=== PATIENT | male | born 1965 | race Caucasian/White ===

== ENCOUNTER 2019-01-03 18:55 | Inpatient (IN) | payer BC ==
[2019-01-03] MEDS ORDERED: SODIUM CHLORIDE 0.9% 1,000 ML IV STA (19:05)
[2019-01-03] MEDS: METOPROLOL TARTRATE 5 MG/5 ML VIAL IVP STA ×2 (19:15→19:25)
[2019-01-03 19:31] LABS: Basophils # (A) 0.1 k/uL (0-0.2); Basophils % (A) 1 %; Eosinophils # (A) 0.3 k/uL (0-0.7); Eosinophils % (A) 3 %; HCT 44.8 % (39.0-53.0); HGB 14.9 gm/dL (13.0-17.5); Lymphocytes # (A) 1.8 k/uL (1.0-4.8); Lymphocytes % (A) 19 %; MCH 29.5 pg (25.0-35.0); MCHC 33.2 g/dL (31.0-37.0); MCV 88.8 fL (80.0-100.0); Mean Platelet Volume 8.6; Monocytes # (A) 0.6 k/uL (0-1.0); Monocytes % (A) 7 %; Neutrophils # (A) 6.9 k/uL (1.3-7.7); Neutrophils % (A) 70 %; Platelet Count 222 k/uL (150-450); RBC 5.05 m/uL (4.30-5.90); WBC 9.8 k/uL (3.8-10.6)
[2019-01-03 19:39] LABS: ALT 51 U/L (21-72); AST 34 U/L (17-59); African American GFR (CKD) >90 (>60 ml/min/1.73 sqM); Albumin 4.1 g/dL (3.5-5.0); Alkaline Phosphatase 75 U/L (38-126); Anion Gap 8 mmol/L; Blood Urea Nitrogen 25 mg/dL (9-20); Calcium 8.9 mg/dL (8.4-10.2); Carbon Dioxide 23 mmol/L (22-30); Chloride 110 mmol/L (98-107); Creatine Kinase 381 U/L (55-170); Glucose 125 mg/dL (74-99); Non-African American GFR(CKD) >90 (>60 ml/min/1.73 sqM); Potassium 3.5 mmol/L (3.5-5.1); Sodium 141 mmol/L (137-145); Total Bilirubin 0.7 mg/dL (0.2-1.3); Total Protein 6.8 g/dL (6.3-8.2)
[2019-01-03 19:45] LABS: D-Dimer <0.17 mg/L FEU (<0.60); INR 0.9 (<1.2); Partial Thromboplastin Time 24.3 sec (22.0-30.0); Prothrombin Time 9.9 sec (9.0-12.0)
--- NOTE | 2019-01-03 19:49 | ED ---
Arrhythmia/Palpitations HPI - General Chief Complaint: Arrhythmia/Palpitations Stated Complaint: SVT Time Seen by Provider: 01/03/19 19:00 Source: patient, EMS, RN notes reviewed, old records reviewed Mode of arrival: EMS Limitations: no limitations - History of Present Illness Initial Comments: This is a 53-year-old male the ER for evaluation. Patient has a for evaluation of significant elevated heart rate cellulitis dizziness and some chest pain. Chest pain is now resolved. Patient has history of SVT otherwise takes no medications has no medical ALLERGIES no medical conditions no drugs or alcohol abuse. Patient symptoms began after work he has not increased stress today denies recent drug or alcohol abuse again. Patient currently is asymptomatic. Per EMS patient was in SVT MD Complaint: palpitations, irregular heart beat -: hour(s) Arrhythmia History: SVT Associated Symptoms: chest pain, shortness of breath, anxiety - Related Data Home Medications Medication Instructions Recorded Confirmed Ibuprofen [Motrin Ib] 800 mg PO DAILY 01/03/19 01/03/19 Allergies Allergy/AdvReac Type Severity Reaction Status Date / Time No Known Allergies Allergy Verified 01/03/19 19:08 Review of Systems ROS Statement: Those systems with pertinent positive or pertinent negative responses have been documented in the HPI. ROS Other: All systems not noted in ROS Statement are negative. Past Medical History Past Medical History: Supraventricular Tachycardia (SVT) History of Any Multi-Drug Resistant Organisms: None Reported Past Surgical History: Appendectomy, Cholecystectomy Past Psychological History: No Psychological Hx Reported Smoking Status: Current every day smoker Past Alcohol Use History: Occasional Past Drug Use History: None Reported General Exam Limitations: no limitations General appearance: alert, in no apparent distress Head exam: Present: atraumatic, normocephalic, normal inspection Eye exam: Present: normal appearance, PERRL, EOMI. Absent: scleral icterus, conjunctival injection, periorbital swelling ENT exam: Present: normal exam, mucous membranes moist Neck exam: Present: normal inspection. Absent: tenderness, meningismus, lymphadenopathy Respiratory exam: Present: normal lung sounds bilaterally. Absent: respiratory distress, wheezes, rales, rhonchi, stridor Cardiovascular Exam: Present: tachycardia, irregular rhythm, normal heart sounds. Absent: systolic murmur, diastolic murmur, rubs, gallop, clicks GI/Abdominal exam: Present: soft, normal bowel sounds. Absent: distended, tenderness, guarding, rebound, rigid Extremities exam: Present: normal inspection, full ROM, normal capillary refill. Absent: tenderness, pedal edema, joint swelling, calf tenderness Back exam: Present: normal inspection Neurological exam: Present: alert, oriented X3, CN II-XII intact Psychiatric exam: Present: normal affect, normal mood Skin exam: Present: warm, dry, intact, normal color. Absent: rash Course Vital Signs 01/03/19 18:58 Temperature 98.2 F Pulse Rate 83 Respiratory 18 Rate Blood Pressure 106/81 - Reevaluation(s) Reevaluation #1: 01/03/19 19:48 Clinical record is reviewed Patient heart rate is reviewed per EMS showing SVT now converted to regular rhythm Reevaluation #2: 01/03/19 19:48 Patient remains without complaint EKG Findings - EKG Comments: EKG Findings:: EKG shows normal sinus rhythm rate of 74, OR 160, QRS 102, QTc 479 Medical Decision Making - Medical Decision Making 83 male presenting for evaluation of SVT. Patient also has elevated troponin, will admit on low-dose beta jesus, patient will admitted for cardiology evaluation - Lab Data Result diagrams: 01/03/19 19:11 01/03/19 19:11 Lab Results 01/03/19 01/03/19 01/03/19 Range/Units 17:20 19:11 19:11 WBC 9.8 (3.8-10.6) k/uL RBC 5.05 (4.30-5.90) m/uL Hgb 14.9 (13.0-17.5) gm/dL Hct 44.8 (39.0-53.0) % MCV 88.8 (80.0-100.0) fL MCH 29.5 (25.0-35.0) pg MCHC 33.2 (31.0-37.0) g/dL RDW 13.0 (11.5-15.5) % Plt Count 222 (150-450) k/uL Neutrophils % 70 % Lymphocytes % 19 % Monocytes % 7 % Eosinophils % 3 % Basophils % 1 % Neutrophils # 6.9 (1.3-7.7) k/uL Lymphocytes # 1.8 (1.0-4.8) k/uL Monocytes # 0.6 (0-1.0) k/uL Eosinophils # 0.3 (0-0.7) k/uL Basophils # 0.1 (0-0.2) k/uL PT (9.0-12.0) sec INR (<1.2) APTT (22.0-30.0) sec D-Dimer (<0.60) mg/L FEU Sodium 141 (137-145) mmol/L Potassium 3.5 (3.5-5.1) mmol/L Chloride 110 H (98-107) mmol/L Carbon Dioxide 23 (22-30) mmol/L Anion Gap 8 mmol/L BUN 25 H (9-20) mg/dL Creatinine 0.74 (0.66-1.25) mg/dL Est GFR (CKD-EPI)AfAm >90 (>60 ml/min/1.73 sqM) Est GFR (CKD-EPI)NonAf >90 (>60 ml/min/1.73 sqM) Glucose 125 H (74-99) mg/dL Calcium 8.9 (8.4-10.2) mg/dL Magnesium 2.0 (1.6-2.3) mg/dL Total Bilirubin 0.7 (0.2-1.3) mg/dL AST 34 (17-59) U/L ALT 51 (21-72) U/L Alkaline Phosphatase 75 (38-126) U/L Creatine Kinase 381 H (55-170) U/L Troponin I (0.000-0.034) ng/mL Total Protein 6.8 (6.3-8.2) g/dL Albumin 4.1 (3.5-5.0) g/dL Urine Color Yellow Urine Appearance Cloudy (Clear) Urine pH 7.0 (5.0-8.0) Ur Specific [place] 1.024 (1.001-1.035) Urine Protein 2+ H (Negative) Urine Glucose (UA) Negative (Negative) Urine Ketones 1+ H (Negative) Urine Blood Negative (Negative) Urine Nitrite Negative (Negative) Urine Bilirubin Negative (Negative) Urine Urobilinogen 2.0 (<2.0) mg/dL Ur Leukocyte Esterase Negative (Negative) Urine RBC 5 (0-5) /hpf Urine WBC 7 H (0-5) /hpf Amorphous Sediment Rare H (None) /hpf Urine Bacteria Occasional H (None) /hpf Hyaline Casts 49 H (0-2) /lpf Granular Casts 12 (0) /lpf Urine Mucus Many H (None) /hpf 01/03/19 01/03/19 Range/Units 19:11 19:11 WBC (3.8-10.6) k/uL RBC (4.30-5.90) m/uL Hgb (13.0-17.5) gm/dL Hct (39.0-53.0) % MCV (80.0-100.0) fL MCH (25.0-35.0) pg MCHC (31.0-37.0) g/dL RDW (11.5-15.5) % Plt Count (150-450) k/uL Neutrophils % % Lymphocytes % % Monocytes % % Eosinophils % % Basophils % % Neutrophils # (1.3-7.7) k/uL Lymphocytes # (1.0-4.8) k/uL Monocytes # (0-1.0) k/uL Eosinophils # (0-0.7) k/uL Basophils # (0-0.2) k/uL PT 9.9 (9.0-12.0) sec INR 0.9 (<1.2) APTT 24.3 (22.0-30.0) sec D-Dimer <0.17 (<0.60) mg/L FEU Sodium (137-145) mmol/L Potassium (3.5-5.1) mmol/L Chloride (98-107) mmol/L Carbon Dioxide (22-30) mmol/L Anion Gap mmol/L BUN (9-20) mg/dL Creatinine (0.66-1.25) mg/dL Est GFR (CKD-EPI)AfAm (>60 ml/min/1.73 sqM) Est GFR (CKD-EPI)NonAf (>60 ml/min/1.73 sqM) Glucose (74-99) mg/dL Calcium (8.4-10.2) mg/dL Magnesium (1.6-2.3) mg/dL Total Bilirubin (0.2-1.3) mg/dL AST (17-59) U/L ALT (21-72) U/L Alkaline Phosphatase (38-126) U/L Creatine Kinase (55-170) U/L Troponin I 0.111 H* (0.000-0.034) ng/mL Total Protein (6.3-8.2) g/dL Albumin (3.5-5.0) g/dL Urine Color Urine Appearance (Clear) Urine pH (5.0-8.0) Ur Specific [place] (1.001-1.035) Urine Protein (Negative) Urine Glucose (UA) (Negative) Urine Ketones (Negative) Urine Blood (Negative) Urine Nitrite (Negative) Urine Bilirubin (Negative) Urine Urobilinogen (<2.0) mg/dL Ur Leukocyte Esterase (Negative) Urine RBC (0-5) /hpf Urine WBC (0-5) /hpf Amorphous Sediment (None) /hpf Urine Bacteria (None) /hpf Hyaline Casts (0-2) /lpf Granular Casts (0) /lpf Urine Mucus (None) /hpf Disposition Clinical Impression: SVT (supraventricular tachycardia), Elevated troponin Disposition: ADMITTED IP TO THIS [facility] Condition: Good Is patient prescribed a controlled substance at d/c from ED?: No Referrals: Melvin Underwood MD [Primary Care Provider] - 1-2 days
[2019-01-03 19:58] LABS: Amorphous Sediment,Urine Rare /hpf; Appearance,Urine Cloudy (Clear); Bacteria,Urine Occasional /hpf; Bilirubin,Urine Negative (Negative); Blood,Urine Negative (Negative); Color,Urine Yellow; Glucose,Urine (UA) Negative (Negative); Granular Casts,Urine 12 /lpf (0); Hyaline Casts,Urine 49 /lpf (0-2); Ketones,Urine 1+ (Negative); Leukocyte Esterase,Urine Negative (Negative); Mucus,Urine Many /hpf; Nitrite,Urine Negative (Negative); Protein,Urine 2+ (Negative); RBC,Urine 5 /hpf (0-5); Specific Gravity,Urine 1.024 (1.001-1.035); WBC,Urine 7 /hpf (0-5)
[2019-01-03] MEDS ORDERED: ASPIRIN 81 MG PO STA (20:01)
[2019-01-03] MEDS ORDERED: NITROGLYCERIN SL TABS 0.4 MG TAB SUBLINGUAL PRN (20:01)
[2019-01-03 20:08] LABS: Amphetamine Screen,Urine Not Detected (NotDetected); Barbiturate Screen,Urine Not Detected (NotDetected); Benzodiazepines Screen,Urine Not Detected (NotDetected); Cocaine Screen,Urine Not Detected (NotDetected); Methadone Screen, Urine Not Detected (NotDetected); Opiate Screen,Urine Not Detected (NotDetected); Oxycodone Screen, Urine Not Detected (NotDetected); Phencyclidine Screen,Urine Not Detected (NotDetected); Tricyclic Antidepressant,Urine Not Detected (NotDetected); Urn Cannabinoid Scrn Not Detected (NotDetected)
[2019-01-03 21:38] VITALS: BMI 33.7
[2019-01-03] MEDS: METOPROLOL TARTRATE 25 MG TAB PO SCH (22:08)
[2019-01-03] MEDS: SODIUM CHLORIDE 0.9% 1,000 ML IV SCH (22:08)
--- NOTE | 2019-01-04 00:12 | P.HPIM ---
History of Present Illness H&P Date: 01/04/19 Patient is a 53-year-old male with no known PMH, current every day smoker who presented to the ED for palpitations, and chest discomfort. Patient states that he was in his usual state of health until about 5 PM earlier today when he suddenly developed epigastric discomfort, with radiation to the left arm, with associated nausea and palpitations. The patient saw his PMD, where he was given chewable aspirins and was sent to the ED. The patient was noted to be in SVT by EMS, and the patient spontaneously converted to sinus prior to arrival at the ED. the patient notes that he currently feels somewhat tired but noted that his symptoms had resolved entirely prior to arrival at the ED. The patient states that 3-4 years ago, he had an episode of SVT, when he was taking several [id number] supplements. The episode had resolved spontaneously however and he attributed it to his supplements. He had no additional episodes until earlier today. He denied chest pain, shortness of breath, nausea, vomiting, palpitations, dizziness. He also denied fever, chills, cough, recent travel, or lower extremity pain. He endorsed having more stress than usual at his job though denied any substance abuse. He underwent an extensive evaluation in the emergency room with an EKG showing normal sinus rhythm at 74 bpm, troponin elevated at 0.111, CK 381, WBC 9.8, hemoglobin 14.9, platelets 222, sodium 141, potassium 3.5, BUN 25, creatinine 0.74. Patient is being admitted to the medicine service for cardiology evaluation for SVT and troponin elevation. Review of Systems Pertinent positives and negatives as discussed in HPI, a complete review of systems was performed and all other systems are negative. Past Medical History Past Medical History: Supraventricular Tachycardia (SVT) Additional Past Medical History / Comment(s): HTN r/t testosterone replacement - stopped medications for testosterone and BP normalized. History of Any Multi-Drug Resistant Organisms: None Reported Past Surgical History: Appendectomy, Cholecystectomy Past Anesthesia/Blood Transfusion Reactions: No Reported Reaction Past Psychological History: No Psychological Hx Reported Smoking Status: Current every day smoker Past Alcohol Use History: Occasional Additional Past Alcohol Use History / Comment(s): patient smokes approx 10 cigarettes a day Past Drug Use History: None Reported Medications and Allergies Home Medications Medication Instructions Recorded Confirmed Type Ibuprofen [Motrin Ib] 800 mg PO DAILY 01/03/19 01/03/19 History Allergies Allergy/AdvReac Type Severity Reaction Status Date / Time No Known Allergies Allergy Verified 01/03/19 19:08 Physical Exam Vitals: Vital Signs Temp Pulse Pulse Resp BP BP Pulse Ox 01/03/19 20:30 98.2 F 67 18 124/82 95 01/03/19 20:28 66 16 140/78 96 01/03/19 19:50 71 18 113/74 97 01/03/19 19:30 66 16 112/72 94 L 01/03/19 19:10 80 18 115/69 93 L 01/03/19 19:00 106/81 92 L 01/03/19 18:58 98.2 F 83 18 106/81 90 L Intake and Output 01/03/19 01/03/19 01/04/19 14:59 22:59 06:59 Other: Weight 104.326 kg General: non toxic, no distress, appears at stated age, obese Derm: no unusual rashes/lesions no unusual ecchymoses, warm, dry Head: atraumatic, normocephalic, symmetric Eyes: EOMI, no lid lag, anicteric sclera, pupils equal round reactive to light ENT: Nose and ears atraumatic, no thrush, no pharyngeal erythema Neck: No thyromegaly, no cervical lymphadenopathy, trachea midline, supple Mouth: no lip lesion, mucus membranes moist Cardiovascular: S1S2 reg, no murmur, positive posterior tibial pulse bilateral, no edema, capillary refill less than 2 seconds Lungs: CTA bilateral, no rhonchi, no rales , no accessory muscle use Abdominal: soft, nontender to palpation, no guarding, no appreciable organomegaly, normal bowel sounds Ext: no gross muscle atrophy, muscle strength 5 out of 5 in all 4 extremities grossly, no contractures, Neuro: CN II-XI grossly intact, light touch intact all 4 extremities, finger to nose within normal limits, Psych: Alert, oriented, appropriate affect Results CBC & Chem 7: 01/03/19 19:11 01/03/19 19:11 Labs: Abnormal Lab Results - Last 24 Hours (Table) 01/03/19 01/03/19 01/03/19 Range/Units 17:20 19:11 19:11 Chloride 110 H (98-107) mmol/L BUN 25 H (9-20) mg/dL Glucose 125 H (74-99) mg/dL Creatine Kinase 381 H (55-170) U/L Troponin I 0.111 H* (0.000-0.034) ng/mL Urine Protein 2+ H (Negative) Urine Ketones 1+ H (Negative) Urine WBC 7 H (0-5) /hpf Amorphous Sediment Rare H (None) /hpf Urine Bacteria Occasional H (None) /hpf Hyaline Casts 49 H (0-2) /lpf Urine Mucus Many H (None) /hpf Thrombosis Risk Factor Assmnt - Choose All That Apply Any of the Below Risk Factors Present?: Yes Each Factor Represents 1 point: Age 41-60 years, Obesity (BMI >25) Other Risk Factors: No Other congenital or acquired thrombophilia - If yes, enter type in comment: No Thrombosis Risk Factor Assessment Total Risk Factor Score: 2 Thrombosis Risk Factor Assessment Level: Low Risk Assessment and Plan Plan: SVT, now resolved -Cardiology consulted -Started on Lopressor 25 mg twice a day -Cardiac monitoring -Continue with aspirin for now -TSH within normal limits -Urine toxicology unremarkable Troponin elevation -Likely secondary to demand from SVT -Trend troponin Hyaline casts in urine -Patient denied urinary complaints -Nonspecific -Advised to f/u with PMD and obtain repeat UA Tobacco abuse -Advised on importance of cessation DVT prophylaxis -Heparin subq The patient is admitted with an anticipated less than 2 midnight stay for evaluation of SVT. CODE STATUS:Full Code Discussed with: Patient, Anticipated discharge date: 01/04/[address]: Home A total of 35 minutes was spent on the care of this complex patient more than 50% of the time was spent in counseling and care coordination.
[2019-01-04] MEDS ORDERED: HEPARIN SOD,PORK IN 0.45% NACL 25,000 UNIT in 0.45% NACL 1 250ML.BAG IV SCH (03:15)
[2019-01-04] MEDS ORDERED: HEPARIN SODIUM,PORCINE 5,000 UNIT/ML 1 ML VIAL IV PRN (03:15)
[2019-01-04] MEDS ORDERED: HEPARIN SODIUM,PORCINE 5,000 UNIT/ML 1 ML VIAL IV ONE (03:15)
[2019-01-04 03:54] LABS: Basophils # (A) 0.1 k/uL (0-0.2); Basophils % (A) 1 %; Eosinophils # (A) 0.2 k/uL (0-0.7); Eosinophils % (A) 2 %; HCT 41.1 % (39.0-53.0); HGB 13.9 gm/dL (13.0-17.5); Lymphocytes # (A) 2.9 k/uL (1.0-4.8); Lymphocytes % (A) 29 %; MCH 30.4 pg (25.0-35.0); MCHC 33.8 g/dL (31.0-37.0); MCV 89.9 fL (80.0-100.0); Mean Platelet Volume 8.8; Monocytes # (A) 0.7 k/uL (0-1.0); Monocytes % (A) 7 %; Neutrophils # (A) 5.7 k/uL (1.3-7.7); Neutrophils % (A) 58 %; Platelet Count 222 k/uL (150-450); RBC 4.57 m/uL (4.30-5.90); RDW 13.1 % (11.5-15.5); WBC 9.8 k/uL (3.8-10.6)
[2019-01-04 04:03] LABS: INR 0.9 (<1.2); Partial Thromboplastin Time 24.2 sec (22.0-30.0); Prothrombin Time 10.1 sec (9.0-12.0)
[2019-01-04 04:08] LABS: Cholesterol 160 mg/dL (<200); HDL Cholesterol 33 mg/dL (40-60); LDL Cholesterol,Calculated 105 mg/dL (0-99); Triglycerides 109 mg/dL (<150)
[2019-01-04] MEDS ORDERED: HEPARIN SODIUM,PORCINE 5,000 UNIT/ML 1 ML VIAL SQ SCH (08:00)
[2019-01-04] MEDS: SODIUM CHLORIDE 0.9% 1,000 ML IV SCH (08:05)
[2019-01-04] MEDS: METOPROLOL TARTRATE 25 MG TAB PO SCH ×2 (08:05→21:55)
[2019-01-04] MEDS ORDERED: ASPIRIN 325 MG TAB PO SCH (09:00)
--- NOTE | 2019-01-04 10:18 | P.PN ---
Progress Note - Text Progress Note Date: 01/04/19 Patient was seen and examined, currently doing well, no chest pain or shortness of breath. Elevation in troponin noted, awaiting cardiology evaluation.
[2019-01-04] MEDS ORDERED: ALPRAZolam 0.25 MG TAB PO PRN (10:24)
[2019-01-04] MEDS ORDERED: NITROGLYCERIN SL TABS 0.4 MG TAB SUBLINGUAL PRN (10:24)
[2019-01-04] MEDS ORDERED: ASPIRIN 325 MG TAB PO STA (10:24)
[2019-01-04] MEDS ORDERED: ATORVASTATIN 80 MG TAB PO STA (10:24)
[2019-01-04] MEDS ORDERED: SODIUM CHLORIDE 0.9% 1,000 ML in EMPTY BAG 1 BAG IV ONE (10:24)
--- NOTE | 2019-01-04 10:58 | CONS ---
CONSULTATION Mr. Dickerson is a 53-year-old male with known history of chronic tobacco use, who yesterday after leaving work felt his heart going quite fast, associated with chest discomfort radiating to the left arm and to the neck and with dizziness. He called in EMS and the EMS, he was noted to be tachycardic at a rate of 182 with what appears to be AV destiny reentry tachycardia that subsequently converted to sinus mechanism. He is feeling well at this time and he has no significant symptoms. He has had an episode of palpitation about 3 to 4 years ago, but did not seek medical therapy at that time and has not had significant recurrence. He is average in his exercise tolerance, has no significant chest discomfort. No significant dyspnea. No syncope. No PND, orthopnea, or peripheral edema. His coronary risk factors are positive for the history of smoking. He is nondiabetic. No documented hypertension except while he was taking testosterone replacement and there is no family history of premature coronary artery disease. His mother had a stent in her 70s. MEDICATIONS: Medications include ibuprofen on a p.r.n. basis. SOCIAL HISTORY: He drinks one caffeinated beverage a day and rare alcohol intake. Smokes about half a pack a day. REVIEW OF SYSTEMS: RESPIRATORY SYSTEM: No documented history of asthma, emphysema or bronchitis. GI SYSTEM: No recent GI bleed. No peptic ulcer disease. SYSTEM: No dysuria or hematuria. NERVOUS SYSTEM: No stroke or seizure. PHYSICAL EXAMINATION: This is a 53-year-old male, alert, oriented, in no apparent distress. Blood pressure 121/60 with the heart rate in the 60s. HEAD: Normocephalic. EYES: Sclerae anicteric. NECK: Good carotid upstroke. No bruit. No jugular venous distention. LUNGS: Clear to auscultation. HEART: Regular rate and rhythm. S1, S2. No S3. No S4. No murmur or rub. ABDOMEN: Soft, nontender. Positive bowel sounds. No organomegaly. EXTREMITIES: No edema intact distal pulses. EKG done yesterday in the emergency room reveals sinus mechanism, normal axis, intervals, rate [address]-segment changes. The EKG done in the EMS initially revealed AV destiny reentry tachycardia with a rate in the 180s and ST-segment depression laterally. Subsequently, when he went in sinus mechanism, there was still mild ST- segment depression in the lateral leads. LAB DATA: Lab data revealed a hemoglobin of 13.9, white blood cell of 9.8. BUN and creatinine 25 and 0.74. Troponin 0.11, 2.3, 1.6. Cholesterol 160, LDL of 105. TSH of 2.17. IMPRESSION: 1. AV destiny reentry tachycardia. 2. [id number] elevation myocardial infarction could be secondary to the tachycardia. The patient had ST-segment depression on the lateral leads. 3. History of chronic tobacco use. RECOMMENDATION: In view of finding, I have recommended proceeding with coronary angiography to assess his status and guide his treatment. The rationale behind the procedure as well as the risks and the complications were discussed with the patient who is in full understanding and agreement. Depending on that, he may be a candidate for EP study and ablation. Will review the results of his echocardiogram. I have discussed with him those finding in detail as well with his and depending on results of testing, further recommendation will be made. Thank you for this consult. We will follow with you. CHRIS / IJN: [id number] /
--- NOTE | 2019-01-04 11:17 | ECHOF ---
Referral Reason:positive troponin MEASUREMENTS -------- HEIGHT: 180.3 cm WEIGHT: 106.6 kg BP: 109/66 RVIDd: 2.8 cm (< 3.3) IVSd: 1.5 cm (0.6 - 1.1) LVIDd: 4.1 cm (3.9 - 5.3) LVPWd: 1.6 cm (0.6 - 1.1) IVSs: 1.9 cm LVIDs: 1.8 cm LVPWs: 1.8 cm LAESV Index (A-L): 18.06 ml/m Ao Diam: 2.8 cm (2.0 - 3.7) AV Cusp: 2.1 cm (1.5 - 2.6) LA Diam: 3.5 cm (2.7 - 3.8) MV EXCURSION: 20.824 mm (> 18.000) MV EF SLOPE: 105 mm/s (70 - 150) EPSS: 0.6 cm MV E Hammad: 0.76 m/s MV DecT: 193 ms MV A Hammad: 0.70 m/s MV E/A Ratio: 1.08 RAP: 15.00 mmHg RVSP: 40.04 mmHg FINDINGS -------- Sinus rhythm. This was a technically adequate study. The left ventricular size is normal. There is moderate concentric left ventricular hypertrophy. O verall left ventricular systolic function is normal with, an EF between 55 - 60 %. The right ventricle is normal in size. Normal LA size by volume 22+/-6 ml/m2. The right atrial size is normal. Interatrial and interventricular septum intact. The aortic valve is trileaflet and appears structurally normal. The mitral valve is normal. The mitral valve leaflets are mildly thickened. Mild mitral annular c alcification present. Mild mitral regurgitation is present. Mild tricuspid regurgitation present. There is mild pulmonary hypertension. The right ventricular systolic pressure, as measured by Doppler, is 40.04mmHg. There is no pulmonic regurgitation present. The aortic root size is normal. The inferior vena cava is mildly dilated. There is no pericardial effusion. CONCLUSIONS -------- 1. Sinus rhythm. 2. This was a technically adequate study. 3. The left ventricular size is normal. 4. There is moderate concentric left ventricular hypertrophy. 5. Overall left ventricular systolic function is normal with, an EF between 55 - 60 %. 6. The right ventricle is normal in size. 7. Normal LA size by volume 22+/-6 ml/m2. 8. The right atrial size is normal. 9. Interatrial and interventricular septum intact. 10. The aortic valve is trileaflet and appears structurally normal. 11. The mitral valve is normal. 12. The mitral valve leaflets are mildly thickened. 13. Mild mitral annular calcification present. 14. Mild mitral regurgitation is present. 15. Mild tricuspid regurgitation present. 16. There is mild pulmonary hypertension. 17. The right ventricular systolic pressure, as measured by Doppler, is 40.04mmHg. 18. There is no pulmonic regurgitation present. 19. The aortic root size is normal. 20. The inferior vena cava is mildly dilated. 21. There is no pericardial effusion. SCIENTIFIC ARTIST: Lisseth Sauceda RDCS
[2019-01-04] MEDS ORDERED: IV FLUID CONTINUATION 750 ML IV ONE (11:50)
[2019-01-04] MEDS ORDERED: fentaNYL (PF) 50 MCG/ML 2 ML AMP IV ONE (12:00)
[2019-01-04] MEDS ORDERED: LIDOCAINE 1% INJ 10MG/ML (20 ML MDV) SQ ONE (12:29)
[2019-01-04] MEDS ORDERED: VERAPAMIL SYRINGE (5 MG/10 ML) INTRAARTER ONE (12:31)
[2019-01-04] MEDS ORDERED: MIDAZOLAM PF (FBP) 2 MG/2 ML VIAL IV ONE (12:31)
[2019-01-04] MEDS ORDERED: HEPARIN SODIUM 1,000 UN/ML (10ML VL) IV ONE (12:38)
[2019-01-04] MEDS ORDERED: IOPAMIDOL-370 100ML BTL INJ ONE (12:42)
[2019-01-04] MEDS ORDERED: RX INFO: IV CONTRAST WAS GIVEN 1 EACH MISC MISCELLANE PRN (12:57)
[2019-01-04] MEDS ORDERED: SODIUM CHLORIDE 0.9% 1,000 ML IV SCH (13:00)
[2019-01-04] MEDS ORDERED: HYDROmorphone 0.5 MG/0.5 ML SYRINGE IVP STA (13:19)
[2019-01-04] MEDS: ALPRAZolam 0.5 MG TAB PO PRN ×2 (15:09→21:58)
[2019-01-04] MEDS ORDERED: IBUPROFEN 600 MG TAB PO STA (15:22)
[2019-01-04] MEDS ORDERED: FUROSEMIDE 10 MG/ML 2 ML VIAL IV ONE (15:30)
[2019-01-04] MEDS ORDERED: ALBUTEROL NEBULIZED 2.5 MG/3 ML INHALATION STA (17:07)
[2019-01-04] MEDS: ALBUTEROL NEBULIZED 2.5 MG/3 ML INHALATION PRN ×2 (17:24→20:15)
--- NOTE | 2019-01-04 20:22 | CC ---
CARDIAC CATHETERIZATION REPORT Mr. Dickerson is a 53-year-old male with known history of chronic tobacco use with no prior history of documented coronary artery disease who presented with an episode of palpitation with SVT and rapid rate. He had chest discomfort with radiation and troponin elevation up to [address]-segment depression in the lateral leads. In view of that, recommendation was made regarding cardiac catheterization. The procedure, its risks and complications, were discussed with the patient, who was in full understanding and agreement. PROCEDURE: Patient was brought to the laboratory technology teacher in a fasting semi-sedated state after receiving fentanyl and Benadryl and achieving a moderate conscious sedated state. Using Xylocaine anesthesia and Seldinger technique, a 6-Beninese sheath was introduced in the right radial artery. Selective right and left coronary angiography was performed using 5-Beninese 3-1/2 bend right and left Arvin catheters. Multiple views were taken of the coronary arteries, including hemiaxial views. Following that, a 5-Beninese tight pigtail catheter was introduced in the left ventricle and a 30-degree VALENCIA view of the left ventricle was obtained. Following that, catheter and sheath were removed. Hemostasis was obtained with deployment of a TR band. There was no immediate complication. Patient was returned to his room in stable condition. Of note, the patient received 5000 units of intravenous heparin as well as intra-arterial verapamil. FINDINGS: LEFT MAIN: This is a large-sized vessel trifurcating into left circumflex, left anterior descending artery and ramus intermedius. Left main coronary artery has no evidence of high-grade stenosis. LEFT ANTERIOR DESCENDING ARTERY: This is a large-sized vessel reaching to the apex with a wrap around the apex segment giving rise to a diagonal branch in mid segment. The left anterior descending artery as well as its branches have no evidence of obstructive coronary artery disease. RAMUS INTERMEDIUS: This is a large-sized vessel, proximal, has no evidence of high- grade stenosis. LEFT CIRCUMFLEX: This is a small, nondominant vessel giving rise to one obtuse marginal branch of moderate caliber. The left circumflex as well as its branches have no evidence of obstructive coronary artery disease. RIGHT CORONARY ARTERY: This is a large dominant vessel bifurcating distally into PDA and posterolateral segment and branches. The right coronary artery as well as its branches have no evidence of obstructive coronary artery disease. LEFT VENTRICULOGRAM: Left ventriculogram was performed in 30-degree VALENCIA view and revealed normal left ventricular size and systolic function. Ejection fraction 60%. There was no significant mitral regurgitation. HEMODYNAMICS: There was no gradient across the aortic valve. The left ventricular end-diastolic pressure was 16 to 20 mmHg. CONCLUSION: 1. Normal coronary arteries. 2. Normal left ventricular size and systolic function. RECOMMENDATIONS: In view of findings and anatomy, I have recommended continued medical therapy with the aggressive coronary risk modifications that have been initiated. 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 I have discussed with the patient and his family the importance of smoking cessation. 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 Those findings and recommendations were discussed with the patient, who is in full understanding and agreement. Duration of procedure was 17 minutes. CHRIS / MONSEN: [id number] /
--- NOTE | 2019-01-05 01:13 | P.PN ---
Progress Note - Text Progress Note Date: 01/05/19 The patient endorsed sudden onset of sharp, pleuritic, substernal chest pain. Patient seen and examined at the bedside. Endorsed 10/10 substernal chest pain, only upon deep inspiration. Denied nausea, vomiting, diaphoresis, or palpitations. Denied lower extremity swelling or pain. Most recent vitals: BP 120/79, P 85, SpO2 94% on RA (stable), and T 99 degrees. General: Non-toxic, in no acute distress, appears stated age HEENT: NC/AT, anicteric sclerae, moist conjunctiva, no lid-lag, PERRLA Cardiovascular: S1/S2 wnl, no murmurs, rubs, or gallops, no chest wall tenderness noted Lungs: Clear to auscultation, normal respiratory effort, no accessory muscle use Abdominal: Soft, non-tender, non-distended, no guarding, rebound, or rigidity Skin: Warm, dry Extremities: No edema or contractures Psychiatric: Alert and oriented to person, place and time, appropriate affect Assessment/Plan Pleuritic chest pain, likely musculoskeletal in origin -BP and SpO2 within normal limits and stable -Low suspicion for PE -Cardiac catheterization earlier today showing normal coronaries -Will administer NSAIDs -Monitor for now -Obtain EKG -C/w Cardiac monitoring
[2019-01-05] MEDS: IBUPROFEN 600 MG TAB PO PRN ×2 (01:54→08:22)
[2019-01-05 07:29] LABS: Basophils % (A) 0 %; Eosinophils # (A) 0.1 k/uL (0-0.7); Eosinophils % (A) 1 %; HCT 41.1 % (39.0-53.0); HGB 13.5 gm/dL (13.0-17.5); Lymphocytes # (A) 2.3 k/uL (1.0-4.8); Lymphocytes % (A) 18 %; MCH 29.4 pg (25.0-35.0); MCHC 32.9 g/dL (31.0-37.0); MCV 89.3 fL (80.0-100.0); Mean Platelet Volume 8.7; Monocytes # (A) 1.2 k/uL (0-1.0); Monocytes % (A) 10 %; Neutrophils # (A) 8.8 k/uL (1.3-7.7); Neutrophils % (A) 69 %; Platelet Count 196 k/uL (150-450); RDW 13.2 % (11.5-15.5); WBC 12.8 k/uL (3.8-10.6)
[2019-01-05] MEDS: METOPROLOL TARTRATE 25 MG TAB PO SCH (08:21)
[2019-01-05] MEDS: ALBUTEROL NEBULIZED 2.5 MG/3 ML INHALATION PRN (08:51)
[2019-01-05] MEDS ORDERED: ATORVASTATIN 20 MG TAB PO SCH (09:00)
[2019-01-05] MEDS ORDERED: ASPIRIN 81 MG PO SCH (09:00)
[2019-01-05] MEDS ORDERED: ATORVASTATIN 40 MG TAB PO SCH (09:00)
[2019-01-05] MEDS ORDERED: IBUPROFEN 400 MG TAB PO SCH (09:00)
[2019-01-05 09:35] VITALS: BP 124/67; PULSE 83; RESP 16; TEMP 97
--- NOTE | 2019-01-05 09:52 | P.DS ---
Providers Date of admission: 01/03/19 20:01 Expected date of discharge: 01/05/19 Attending physician: Emmett Magaña MD Consults: 01/03/19 20:01 Consult Physician Urgent Consulting Provider: Joel Hyman Consult Reason/Comments: svt Do you want consulting provider notified?: Yes Primary care physician: Melvin A [facility] Course: 53-year-old male with no known PMH, current every day smoker who presented to the ED for palpitations, and chest discomfort. Patient suddenly developed epigastric discomfort, with radiation to the left arm, with associated nausea and palpitations. The patient saw his PCP, where he was given chewable aspirins and was sent to the ED. The patient was noted to be in SVT by EMS, and the patient spontaneously converted to sinus prior to arrival at the ED. The patient states that 3-4 years ago, he had an episode of SVT, when he was taking several alva-eez-gbzfecg supplements. The episode resolved after 3 doses of adenosine at that time. He attributed it to his supplements back then. This would be his second episode of SVT. He denied shortness of breath, nausea, vomiting, dizziness. He also denied fever, chills, cough, recent travel, or lower extremity pain. He endorsed having more stress than usual at his job though denied any substance abuse. He underwent an extensive evaluation in the emergency room with an EKG showing normal sinus rhythm at 74 bpm, troponin elevated at 0.111, CK 381, WBC 9.8, hemoglobin 14.9, platelets 222, sodium 141, potassium 3.5, BUN 25, creatinine 0.74. Patient was admitted to the hospital for further evaluation and management. He was started on heparin drip for suspected acute myocardial infarction. His troponins did trend up. Subsequently was taken to the Critical Care Technician by cardiology where he was found to have clean coronaries. He did not have any further episodes of SVT throughout hospitalization. Cardiology did not recommend EP study at this point or any ablation procedure but down the road patient might need that. This was communicated with the patient. Throughout the hospitalization the patient kept having chest pain that was pleuritic in quality. I discussed the case with the icer hand today who thought that he most likely has myopericarditis. Patient will be started on Motrin course and discharged home in a stable condition. Time for discharge 35 minutes. Patient Condition at Discharge: Good Plan - Discharge Summary Discharge Rx Participant: No New Discharge Prescriptions: New Ibuprofen [Motrin] 400 mg PO TID 7 Days #21 tab Discontinued Ibuprofen [Motrin Ib] 800 mg PO DAILY Discharge Medication List Ibuprofen [Motrin] 400 mg PO TID 7 Days #21 tab 01/05/19 [Rx] Follow up Appointment(s)/Referral(s): Joel Hyman MD [STAFF PHYSICIAN] - 1 Week Melvin Underwood MD [Primary Care Provider] - 1-2 days Patient Instructions/Handouts: Supraventricular Tachycardia (DC), How to Stop Smoking (DC), Heart Healthy Diet (DC), After Radial Heart Catheterization (GEN)
--- NOTE | 2019-01-05 12:33 | PN ---
PROGRESS NOTE Mr. Dickerson is a 53-year-old male who presented with SVT and symptoms of chest discomfort, underwent cardiac catheterization, was found to have no evidence of obstructive disease with preserved left ventricular size and systolic function. He complained of some chest discomfort, respirophasic in pattern, that could represent pericarditis. He denies any dizziness or palpitation. On the monitor, he is in sinus mechanism. He continues to be on aspirin once a day, Lipitor 20 mg daily, metoprolol tartrate 25 mg twice a day. PHYSICAL EXAMINATION: Blood pressure 134/70 with the heart rate in the 80s. LUNGS: Clear. HEART: Regular rate and rhythm. S1, S2. No S3. No rub appreciated. ABDOMEN: Soft, nontender. EXTREMITIES: No edema. Right radial pulse intact. LAB DATA: Lab data revealed a white blood cell of 12.8, hemoglobin is 13.5. IMPRESSION: 1. 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 2. Troponin elevation with no evidence of obstructive coronary artery disease could represent an episode of myopericarditis. The possibility of vasospastic disease cannot be excluded. 3. History of chronic tobacco use. 4. Mild hyperlipidemia. RECOMMENDATION: I will give him one week of ibuprofen. If he is stable he should be able to be discharged home today and followed as an outpatient. MMODL / MONSEN: [id number] /
== END 2019-01-05 11:22 | disposition home or self-care (01) | DRG 287 ==
LOC: EC 18:55 → 3SCARD 20:01 → OBSVTOIN 01-04 15:34
PROVIDERS: ADMIT Internal Medicine; ATTEND Internal Medicine
PROC: B2111ZZ Fluoroscopy of Multiple Coronary Arteries using Low Osmolar Contrast (ICD-10-PCS; 2019-01-04)
PROC: B2151ZZ Fluoroscopy of Left Heart using Low Osmolar Contrast (ICD-10-PCS; 2019-01-04)
PROC: 4A023N7 Measurement of Cardiac Sampling and Pressure, Left Heart, Percutaneous Approach (ICD-10-PCS; principal; 2019-01-04 11:50)
DX: I47.1 Supraventricular tachycardia (principal); I31.9 Disease of pericardium, unspecified; I20.1 Angina pectoris with documented spasm; E78.5 Hyperlipidemia, unspecified; F17.210 Nicotine dependence, cigarettes, uncomplicated; F41.9 Anxiety disorder, unspecified; R82.998 Other abnormal findings in urine; R77.9 Abnormality of plasma protein, unspecified; Z90.49 Acquired absence of other specified parts of digestive tract
CPT/HCPCS: 36415; 80053; 80061; 80306; 81001; 82550; 83735; 84443; 84484; 85025; 85379; 85610; 85652; 85730; 93005; 93306; 93458; 94640; 96361; 96374; 99285

== ENCOUNTER → 2020-08-28 | Outpatient (CLI) | payer BC ==
--- NOTE | 2020-08-28 11:00 | ECHOF ---
Referral Reason:R00.2 palpitations MEASUREMENTS -------- HEIGHT: 177.8 cm WEIGHT: 106.1 kg BP: RVIDd: 4.0 cm (< 3.3) IVSd: 1.7 cm (0.6 - 1.1) LVIDd: 3.7 cm (3.9 - 5.3) LVPWd: 1.4 cm (0.6 - 1.1) IVSs: 1.9 cm LVIDs: 2.5 cm LVPWs: 1.9 cm LAESV Index (A-L): 19.68 ml/m Ao Diam: 3.7 cm (2.0 - 3.7) AV Cusp: 2.0 cm (1.5 - 2.6) MV EXCURSION: 16.659 mm (> 18.000) MV EF SLOPE: 65 mm/s (70 - 150) EPSS: 0.9 cm MV E Hammad: 0.70 m/s MV DecT: 287 ms MV A Hammad: 0.57 m/s MV E/A Ratio: 1.23 RAP: 5.00 mmHg RVSP: 21.42 mmHg FINDINGS -------- Sinus rhythm. This was a technically adequate study. The left ventricular size is normal. There is moderate concentric left ventricular hypertrophy. O verall left ventricular systolic function is normal with, an EF between 55 - 60 %. The diastolic fi lling pattern is normal for the age of the patient 10.83. The right ventricle is moderately enlarged. Normal LA size by volume 22+/-6 ml/m2. The right atrial size is normal. Interatrial and interventricular septum intact. The aortic valve is trileaflet and appears structurally normal. There is no evidence of aortic regu rgitation. There is no evidence of aortic stenosis. There is trace mitral regurgitation. Mild tricuspid regurgitation present. There is no evidence of pulmonary hypertension. The right v entricular systolic pressure, as measured by Doppler, is 21.42mmHg. There is no pulmonic regurgitation present. The aortic root size is normal. Normal inferior vena cava with normal inspiratory collapse consistent with estimated right atrial pre ssure of 5 mmHg. There is no pericardial effusion. CONCLUSIONS -------- 1. The left ventricular size is normal. 2. There is moderate concentric left ventricular hypertrophy. 3. Overall left ventricular systolic function is normal with, an EF between 55 - 60 %. 4. The diastolic filling pattern is normal for the age of the patient 10.83 5. The right ventricle is moderately enlarged. 6. There is trace mitral regurgitation. 7. Mild tricuspid regurgitation present. INSTRUCTIONAL SYSTEMS DESIGN CONSULTANT: Avani Mac RDCS
== END | disposition home or self-care (01) ==
LOC: RADECHMAIN 08:26
PROVIDERS: ATTEND Family Medicine
DX: I08.1 Rheumatic disorders of both mitral and tricuspid valves (principal); I51.7 Cardiomegaly
CPT/HCPCS: 93306